=== PATIENT | male | born 1990 | race Caucasian/White ===

== ENCOUNTER 2021-03-10 08:16 | Emergency (ER) | payer OTHER ==
[~2021-03-10] VITALS: Ht 188 cm; Wt 82.2 kg
--- NOTE | 2021-03-10 09:00 | NUR ---
PUMPER HEAD: PT TO ROOM FROM [facility].
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
[2021-03-10 10:07] VITALS: BP 132/84
--- NOTE | 2021-03-10 10:07 | NUR ---
Patient/Caregiver given discharge instructions and they have confirmed that they understand the instructions. Patient ambulatory with steady gait.
== END 2021-03-10 10:09 | disposition home or self-care (01) ==
LOC: ED 09:20
DX: S11.91XA Laceration without foreign body of unspecified part of neck, initial encounter (principal); L03.221 Cellulitis of neck; Y04.8XXA Assault by other bodily force, initial encounter; Y93.89 Activity, other specified; Y92.89 Other specified places as the place of occurrence of the external cause; Y99.8 Other external cause status
CPT/HCPCS: 99283